=== PATIENT | female | born 1995 | race Caucasian/White ===

== ENCOUNTER 2017-12-23 16:05 | Emergency (ER) | payer OTHER ==
[~2017-12-23] VITALS: Ht 152.4 cm; Wt 63.5 kg
== END 2017-12-23 17:08 | disposition home or self-care (01) ==
LOC: ER 16:05
DX: J02.0 Streptococcal pharyngitis (principal); H92.03 Otalgia, bilateral

== ENCOUNTER 2019-09-07 09:41 | Emergency (ER) | payer OTHER ==
[~2019-09-07] VITALS: Ht 152.4 cm; Wt 68.0 kg
[2019-09-07 10:28] VITALS: BP 106/54
== END 2019-09-07 10:28 | disposition home or self-care (01) ==
LOC: ER 09:41
DX: J03.80 Acute tonsillitis due to other specified organisms (principal); B96.89 Other specified bacterial agents as the cause of diseases classified elsewhere